=== PATIENT | male | born 1945 | race Asian ===

== ENCOUNTER 2018-01-13 08:21 | Inpatient (IN) | payer OTHER ==
[~2018-01-13 08:21] MED LIST: CEFAZOLIN 1 GM INJ
[2018-01-13] MEDS ORDERED: LIDOCAINE 1% (MDV) 20 ML INJ (10:30)
[2018-01-13] MEDS ORDERED: MIDAZOLAM 1 MG/ML 2 ML INJ (10:30)
[2018-01-13] MEDS ORDERED: ROCURONIUM 50 MG INJ (10:30)
[2018-01-13] MEDS ORDERED: PROPOFOL 20 ML (10:30)
[2018-01-13] MEDS ORDERED: POVIDONE IODINE 10% 28.4 GM OINT (11:41)
[2018-01-13] MEDS ORDERED: PHENYLephrine 10 MG INJ ×2 (12:11→12:28)
[2018-01-13] MEDS ORDERED: DEXAMETHASONE 4 MG/ML 1 ML INJ (12:43)
[2018-01-13] MEDS ORDERED: FAMOTIDINE 20 MG INJ (12:43)
[2018-01-13] MEDS ORDERED: ONDANSETRON 4 MG INJ (12:43)
[2018-01-13] MEDS ORDERED: ACETAMINOPHEN 1000MG/100ML IV 100 ML (12:43)
[2018-01-13] MEDS ORDERED: SUCCINYLCHOLINE CHLORIDE 100 MG/5 ML SYG IV (12:51)
[2018-01-13] MEDS ORDERED: ETOMIDATE 20 MG INJ (12:51)
[2018-01-13] MEDS: BUPIVACAINE 0.5% (SDV) 30 ML INJ (13:05)
[2018-01-13] MEDS: LIDOCAINE 1%/EPI 30 ML INJ (13:05)
[2018-01-13] MEDS: GELATIN SIZE 100 SPONGE (13:07)
[2018-01-13] MEDS: POLYMYXIN/BACITRACIN 1L IRRIG (13:09)
[2018-01-13] MEDS: THROMBIN 5000 UNIT VIAL ×2 (13:10)
[2018-01-13] MEDS: HEMOSTATIC MATRIX SYG ZFS (13:11)
[2018-01-13] MEDS ORDERED: THROMBIN 5000 UNIT VIAL (13:45)
[2018-01-13] MEDS: 1/2 NS + KCL 20 MEQ 1,000 ML IV ×2 (15:16→22:50)
[2018-01-13] MEDS ORDERED: CYCLOBENZAPRINE 10 MG TAB PO (15:30)
[2018-01-13] MEDS: LISINOPRIL 5 MG TAB PO (15:30)
[2018-01-13] MEDS: OXYBUTYNIN (XL) 5 MG TAB PO (15:30)
[2018-01-13] MEDS: HYDROCODONE/APAP (10/325) TAB PO ×3 (15:30→23:11)
[2018-01-13] MEDS ORDERED: ONDANSETRON 4 MG INJ IV ×2 (15:30→16:00)
[2018-01-13] MEDS: DOCUSATE SODIUM 100 MG CAP PO (15:30)
[2018-01-13] MEDS ORDERED: hydrALAzine 20 MG INJ IV (16:00)
[2018-01-13] MEDS ORDERED: DEXTROSE 50% 50 ML SYRINGE IV ×2 (16:00)
[2018-01-13] MEDS ORDERED: LABETALOL HCL 20MG INJ IV (16:00)
[2018-01-13] MEDS ORDERED: GLUCAGON 1 MG INJ IM (16:00)
[2018-01-13] MEDS ORDERED: GLUCOSE GEL 15 GRAM TUBE PO ×2 (16:00)
[2018-01-13] MEDS ORDERED: GLUCOSE GEL 15 GRAM TUBE BUCCAL (16:00)
[2018-01-13] MEDS ORDERED: DIPHENHYDRAMINE 50 MG INJ IV (16:00)
[2018-01-13] MEDS: CEFAZOLIN 1 GM/50 ML (PMX) 50 ML IVPB ×2 (16:55→22:52)
[2018-01-13] MEDS: HYDROmorphONE (0.2 MG/ML) 10ML SYG IV (19:01)
[2018-01-13] MEDS: INSULIN ASPART [NOVOLOG] 3 ML PEN SC ×2 (22:49→22:50)
[2018-01-13] MEDS: ATORVASTATIN 10 MG TAB PO ×2 (22:52→23:10)
[2018-01-13] MEDS: FAMOTIDINE 20 MG INJ IV (22:53)
[2018-01-13] MEDS: TAMSULOSIN (SR) 0.4 MG CAP PO ×2 (22:53→23:08)
[2018-01-14] MEDS: HYDROmorphONE 0.5 MG/0.5 ML SYG IV ×5 (00:38→20:56)
[2018-01-14] MEDS: HYDROCODONE/APAP (10/325) TAB PO ×4 (03:30→20:43)
[2018-01-14] MEDS: hydrALAzine 20 MG INJ IV (05:41)
[2018-01-14 07:38] LABS: ADD MAN DIFF? NO
[2018-01-14 07:50] LABS: WHITE BLOOD COUNT 14.5 10^3/ul (4.8-10.8)
[2018-01-14 07:50] LABS: ABNORMAL IP MESSAGE 1; BASOPHILS % 0.3 % (0.0-2.0); EOSINOPHILS % 0.3 % (0.0-7.0); HEMATOCRIT 36.3 % (42.0-52.0); HEMOGLOBIN 11.8 g/dl (14.0-18.0); LYMPHOCYTES # 2.2 10^3/ul (0.8-2.9); LYMPHOCYTES % 15.3 % (15.0-51.0); MEAN CORPUSCULAR HEMOGLOBIN 28.9 pg (29.0-33.0); MEAN CORPUSCULAR HGB CONC 32.5 g/dl (32.0-37.0); MEAN CORPUSCULAR VOLUME 88.8 fl (82.0-101.0); MEAN PLATELET VOLUME 11.2 fl (7.4-10.4); MONOCYTE # 1.5 10^3/ul (0.3-0.9); MONOCYTES % 10.5 % (0.0-11.0); NEUTROPHIL # 10.6 10^3/ul (1.6-7.5); NEUTROPHILS % 72.8 % (39.0-77.0); PLATELET COUNT 300 10^3/UL (140-415); POSITIVE DIFF @See below; RED BLOOD COUNT 4.09 10^6/ul (4.70-6.10); RED CELL DISTRIBUTION WIDTH 14.4 % (11.5-14.5)
[2018-01-14] MEDS: INSULIN ASPART [NOVOLOG] 3 ML PEN SC ×4 (07:55→20:42)
[2018-01-14] MEDS ORDERED: metFORMIN 850 MG TAB PO (08:00)
[2018-01-14 08:05] LABS: ANION GAP 12 (8-16); BLOOD UREA NITROGEN 13 mg/dl (7-20); CALCIUM 8.5 mg/dl (8.4-10.2); CARBON DIOXIDE 29 mmol/L (21-31); CHLORIDE 101 mmol/L (97-110); CREATININE 0.74 mg/dl (0.61-1.24); GLUCOSE 135 mg/dl (70-220); POTASSIUM 3.9 mmol/L (3.5-5.1); SODIUM 138 mmol/L (135-144)
[2018-01-14 08:11] LABS: MAGNESIUM 1.4 mg/dl (1.7-2.5)
[2018-01-14 08:11] LABS: PHOSPHORUS 2.6 mg/dl (2.5-4.9)
[2018-01-14] MEDS: 1/2 NS + KCL 20 MEQ 1,000 ML IV ×2 (08:45→20:46)
[2018-01-14] MEDS: FAMOTIDINE 20 MG INJ IV ×2 (08:45→20:40)
[2018-01-14] MEDS: DOCUSATE SODIUM 100 MG CAP PO (08:47)
[2018-01-14] MEDS: CEFAZOLIN 1 GM/50 ML (PMX) 50 ML IVPB (08:47)
[2018-01-14] MEDS: AMLODIPINE 10 MG TAB PO (08:48)
[2018-01-14] MEDS: OXYBUTYNIN (XL) 5 MG TAB PO (08:48)
[2018-01-14] MEDS: CHOLECALCIFEROL 1,000 UNIT TAB PO (08:48)
[2018-01-14] MEDS: LISINOPRIL 20 MG TAB PO (08:49)
[2018-01-14] MEDS: MAGNESIUM SULFATE 4 GM/100 ML 100 ML IVPB (11:33)
[2018-01-14] MEDS: CIPROFLOXACIN 200 MG/D5W IVPB 100 ML IVPB ×2 (14:18→20:39)
[2018-01-14] MEDS: ATORVASTATIN 10 MG TAB PO ×2 (20:41→20:42)
[2018-01-14] MEDS: TAMSULOSIN (SR) 0.4 MG CAP PO (20:42)
[2018-01-15] MEDS: HYDROmorphONE 0.5 MG/0.5 ML SYG IV ×3 (01:01→21:00)
[2018-01-15] MEDS: HYDROCODONE/APAP (10/325) TAB PO ×4 (03:30→20:57)
[2018-01-15] MEDS: 1/2 NS + KCL 20 MEQ 1,000 ML IV ×2 (05:50→17:22)
[2018-01-15 06:22] LABS: ADD MAN DIFF? NO
[2018-01-15 06:51] LABS: WHITE BLOOD COUNT 13.3 10^3/ul (4.8-10.8)
[2018-01-15 06:51] LABS: ABNORMAL IP MESSAGE 1; BASOPHIL # 0.1 10^3/ul (0.0-0.1); BASOPHILS % 0.4 % (0.0-2.0); EOSINOPHILS # 0.1 10^3/ul (0.0-0.5); EOSINOPHILS % 0.4 % (0.0-7.0); HEMATOCRIT 33.4 % (42.0-52.0); HEMOGLOBIN 11.1 g/dl (14.0-18.0); LYMPHOCYTES # 1.7 10^3/ul (0.8-2.9); LYMPHOCYTES % 12.6 % (15.0-51.0); MEAN CORPUSCULAR HEMOGLOBIN 29.6 pg (29.0-33.0); MEAN CORPUSCULAR HGB CONC 33.2 g/dl (32.0-37.0); MEAN CORPUSCULAR VOLUME 89.1 fl (82.0-101.0); MEAN PLATELET VOLUME 11.3 fl (7.4-10.4); MONOCYTES % 14.8 % (0.0-11.0); NEUTROPHIL # 9.5 10^3/ul (1.6-7.5); NEUTROPHILS % 71.4 % (39.0-77.0); PLATELET COUNT 270 10^3/UL (140-415); POSITIVE DIFF @See below; RED BLOOD COUNT 3.75 10^6/ul (4.70-6.10); RED CELL DISTRIBUTION WIDTH 14.7 % (11.5-14.5)
[2018-01-15 07:08] LABS: ANION GAP 12 (8-16); BLOOD UREA NITROGEN 10 mg/dl (7-20); CALCIUM 8.1 mg/dl (8.4-10.2); CARBON DIOXIDE 29 mmol/L (21-31); CHLORIDE 98 mmol/L (97-110); CREATININE 0.74 mg/dl (0.61-1.24); GLUCOSE 116 mg/dl (70-220); POTASSIUM 4.6 mmol/L (3.5-5.1); SODIUM 134 mmol/L (135-144)
[2018-01-15] MEDS: INSULIN ASPART [NOVOLOG] 3 ML PEN SC ×4 (07:55→20:56)
[2018-01-15] MEDS: DOCUSATE SODIUM 100 MG CAP PO (08:30)
[2018-01-15] MEDS: OXYBUTYNIN (XL) 5 MG TAB PO (08:30)
[2018-01-15] MEDS: LISINOPRIL 20 MG TAB PO (08:31)
[2018-01-15] MEDS: CHOLECALCIFEROL 1,000 UNIT TAB PO (08:31)
[2018-01-15] MEDS: AMLODIPINE 10 MG TAB PO (08:31)
[2018-01-15] MEDS: FAMOTIDINE 20 MG INJ IV ×2 (08:36→20:49)
[2018-01-15] MEDS: CIPROFLOXACIN 200 MG/D5W IVPB 100 ML IVPB ×2 (08:47→20:49)
[2018-01-15] MEDS: TAMSULOSIN (SR) 0.4 MG CAP PO (20:56)
[2018-01-15] MEDS: ATORVASTATIN 10 MG TAB PO (20:56)
[2018-01-16] MEDS: HYDROmorphONE 0.5 MG/0.5 ML SYG IV ×2 (01:07→20:23)
[2018-01-16] MEDS: 1/2 NS + KCL 20 MEQ 1,000 ML IV ×3 (03:29→23:30)
[2018-01-16] MEDS: HYDROCODONE/APAP (10/325) TAB PO ×4 (03:29→20:16)
[2018-01-16 06:24] LABS: ADD MAN DIFF? NO
[2018-01-16 06:25] LABS: BASOPHILS % 0.4 % (0.0-2.0); EOSINOPHILS # 0.1 10^3/ul (0.0-0.5); EOSINOPHILS % 1.1 % (0.0-7.0); HEMATOCRIT 35.6 % (42.0-52.0); HEMOGLOBIN 11.5 g/dl (14.0-18.0); LYMPHOCYTES # 1.6 10^3/ul (0.8-2.9); LYMPHOCYTES % 16.1 % (15.0-51.0); MEAN CORPUSCULAR HEMOGLOBIN 29.1 pg (29.0-33.0); MEAN CORPUSCULAR HGB CONC 32.3 g/dl (32.0-37.0); MEAN CORPUSCULAR VOLUME 90.1 fl (82.0-101.0); MONOCYTE # 1.3 10^3/ul (0.3-0.9); MONOCYTES % 12.8 % (0.0-11.0); NEUTROPHIL # 6.8 10^3/ul (1.6-7.5); NEUTROPHILS % 69.2 % (39.0-77.0); PLATELET COUNT 250 10^3/UL (140-415); RED BLOOD COUNT 3.95 10^6/ul (4.70-6.10); RED CELL DISTRIBUTION WIDTH 14.4 % (11.5-14.5)
[2018-01-16 06:25] LABS: WHITE BLOOD COUNT 9.9 10^3/ul (4.8-10.8)
[2018-01-16 07:26] LABS: MAGNESIUM 1.7 mg/dl (1.7-2.5)
[2018-01-16 07:26] LABS: PHOSPHORUS 2.3 mg/dl (2.5-4.9)
[2018-01-16 07:27] LABS: ANION GAP 15 (8-16); BLOOD UREA NITROGEN 13 mg/dl (7-20); CALCIUM 8.7 mg/dl (8.4-10.2); CARBON DIOXIDE 27 mmol/L (21-31); CHLORIDE 98 mmol/L (97-110); CREATININE 0.79 mg/dl (0.61-1.24); GLUCOSE 108 mg/dl (70-220); POTASSIUM 4.4 mmol/L (3.5-5.1); SODIUM 136 mmol/L (135-144)
[2018-01-16] MEDS: INSULIN ASPART [NOVOLOG] 3 ML PEN SC ×4 (07:55→20:15)
[2018-01-16] MEDS: FAMOTIDINE 20 MG INJ IV ×2 (08:41→20:13)
[2018-01-16] MEDS: CIPROFLOXACIN 200 MG/D5W IVPB 100 ML IVPB ×2 (08:42→20:23)
[2018-01-16] MEDS: OXYBUTYNIN (XL) 5 MG TAB PO (08:48)
[2018-01-16] MEDS: DOCUSATE SODIUM 100 MG CAP PO (08:48)
[2018-01-16] MEDS: AMLODIPINE 10 MG TAB PO (08:48)
[2018-01-16] MEDS: CHOLECALCIFEROL 1,000 UNIT TAB PO (08:49)
[2018-01-16] MEDS: LISINOPRIL 20 MG TAB PO (08:49)
[2018-01-16] MEDS: TAMSULOSIN (SR) 0.4 MG CAP PO (20:14)
[2018-01-16] MEDS: ATORVASTATIN 10 MG TAB PO (20:15)
[2018-01-17] MEDS: HYDROmorphONE 0.5 MG/0.5 ML SYG IV (00:10)
[2018-01-17] MEDS: HYDROCODONE/APAP (10/325) TAB PO ×5 (03:30→22:38)
[2018-01-17 06:59] LABS: PHOSPHORUS 2.5 mg/dl (2.5-4.9)
[2018-01-17 06:59] LABS: MAGNESIUM 1.5 mg/dl (1.7-2.5)
[2018-01-17 07:05] LABS: ANION GAP 12 (8-16); BLOOD UREA NITROGEN 14 mg/dl (7-20); CALCIUM 8.5 mg/dl (8.4-10.2); CARBON DIOXIDE 29 mmol/L (21-31); CHLORIDE 98 mmol/L (97-110); CREATININE 0.76 mg/dl (0.61-1.24); GLUCOSE 123 mg/dl (70-220); POTASSIUM 4.3 mmol/L (3.5-5.1); SODIUM 135 mmol/L (135-144)
[2018-01-17] MEDS: INSULIN ASPART [NOVOLOG] 3 ML PEN SC ×4 (07:55→21:00)
[2018-01-17] MEDS: CIPROFLOXACIN 200 MG/D5W IVPB 100 ML IVPB ×2 (08:45→21:37)
[2018-01-17] MEDS: FAMOTIDINE 20 MG INJ IV ×2 (08:47→21:34)
[2018-01-17] MEDS: CHOLECALCIFEROL 1,000 UNIT TAB PO (09:00)
[2018-01-17] MEDS: AMLODIPINE 10 MG TAB PO (09:00)
[2018-01-17] MEDS: LISINOPRIL 20 MG TAB PO (09:00)
[2018-01-17] MEDS: OXYBUTYNIN (XL) 5 MG TAB PO (09:00)
[2018-01-17] MEDS: DOCUSATE SODIUM 100 MG CAP PO (09:00)
[2018-01-17] MEDS: 1/2 NS + KCL 20 MEQ 1,000 ML IV (10:26)
[2018-01-17] MEDS: MAGNESIUM SULFATE 4 GM/100 ML 100 ML IVPB (10:47)
[2018-01-17] MEDS: TAMSULOSIN (SR) 0.4 MG CAP PO (21:33)
[2018-01-17] MEDS: ATORVASTATIN 10 MG TAB PO (21:33)
[2018-01-18] MEDS: hydrALAzine 20 MG INJ IV (00:21)
[2018-01-18] MEDS: HYDROmorphONE 0.5 MG/0.5 ML SYG IV (01:17)
[2018-01-18] MEDS: 1/2 NS + KCL 20 MEQ 1,000 ML IV ×2 (02:07→08:14)
[2018-01-18] MEDS: HYDROCODONE/APAP (10/325) TAB PO ×3 (05:30→15:05)
[2018-01-18 06:29] LABS: ADD MAN DIFF? NO
[2018-01-18 06:36] LABS: ABNORMAL IP MESSAGE 1; BASOPHILS % 0.2 % (0.0-2.0); EOSINOPHILS % 0.1 % (0.0-7.0); HEMATOCRIT 32.7 % (42.0-52.0); HEMOGLOBIN 10.6 g/dl (14.0-18.0); LYMPHOCYTES # 0.9 10^3/ul (0.8-2.9); LYMPHOCYTES % 5.2 % (15.0-51.0); MEAN CORPUSCULAR HGB CONC 32.4 g/dl (32.0-37.0); MEAN CORPUSCULAR VOLUME 89.3 fl (82.0-101.0); MEAN PLATELET VOLUME 10.7 fl (7.4-10.4); MONOCYTE # 1.8 10^3/ul (0.3-0.9); MONOCYTES % 10.7 % (0.0-11.0); NEUTROPHIL # 13.7 10^3/ul (1.6-7.5); NEUTROPHILS % 83.3 % (39.0-77.0); PLATELET COUNT 277 10^3/UL (140-415); POSITIVE DIFF @See below; RED BLOOD COUNT 3.66 10^6/ul (4.70-6.10); RED CELL DISTRIBUTION WIDTH 14.4 % (11.5-14.5)
[2018-01-18 06:36] LABS: WHITE BLOOD COUNT 16.4 10^3/ul (4.8-10.8)
[2018-01-18 07:06] LABS: ANION GAP 14 (8-16); BLOOD UREA NITROGEN 18 mg/dl (7-20); CALCIUM 8.1 mg/dl (8.4-10.2); CARBON DIOXIDE 30 mmol/L (21-31); CHLORIDE 94 mmol/L (97-110); CREATININE 0.69 mg/dl (0.61-1.24); GLUCOSE 188 mg/dl (70-220); POTASSIUM 4.5 mmol/L (3.5-5.1); SODIUM 133 mmol/L (135-144)
[2018-01-18] MEDS: LISINOPRIL 20 MG TAB PO (08:23)
[2018-01-18] MEDS: DOCUSATE SODIUM 100 MG CAP PO (08:23)
[2018-01-18] MEDS: AMLODIPINE 10 MG TAB PO (08:23)
[2018-01-18] MEDS: CHOLECALCIFEROL 1,000 UNIT TAB PO (08:23)
[2018-01-18] MEDS: FAMOTIDINE 20 MG INJ IV ×2 (08:23→21:56)
[2018-01-18] MEDS: INSULIN ASPART [NOVOLOG] 3 ML PEN SC ×4 (08:25→21:06)
[2018-01-18] MEDS: OXYBUTYNIN (XL) 5 MG TAB PO (08:30)
[2018-01-18] MEDS: CIPROFLOXACIN 200 MG/D5W IVPB 100 ML IVPB (08:37)
[2018-01-18] MEDS ORDERED: CYCLOBENZAPRINE 10 MG TAB PO (10:00)
[2018-01-18] MEDS: ACETAMINOPHEN 650MG/20.3ML CUP NGT (10:46)
[2018-01-18] MEDS ORDERED: [UNRECOGNIZED DRUG - REMARK] XX (11:00)
[2018-01-18] MEDS: [UNRECOGNIZED DRUG - REMARK] XX (11:00)
[2018-01-18] MEDS ORDERED: PENDING SANTYL ORDER FOR WOUND CARE XX (14:00)
[2018-01-18] MEDS: LEVOFLOXACIN 750MG/D5W (PMX) 150 ML IVPB (15:27)
[2018-01-18] MEDS: LACTOBACILLUS RHAMNOSUS CAP PO ×2 (15:28→21:59)
[2018-01-18] MEDS: NALOXONE (0.4 MG/ML) INJ IV (15:29)
[2018-01-18] MEDS: SOD CHLORIDE 0.9% 1,000 ML IV ×2 (17:57→18:53)
[2018-01-18 18:44] LABS: LACTIC ACID 1.6 mmol/L (0.5-2.0)
[2018-01-18] MEDS: SOD CHLORIDE 0.9% 500 ML IV (18:53)
[2018-01-18] MEDS: METOCLOPRAMIDE 10 MG INJ IV (18:57)
[2018-01-18] MEDS: PIPER-TAZO 3.375 GM IV (PMX) 100 ML IVPB (18:59)
[2018-01-18] MEDS ORDERED: VANCOMYCIN IV PER PHARMACY XX (19:30)
[2018-01-18] MEDS: LIDOCAINE 1% (MPF) 5 ML VIAL SC (19:30)
[2018-01-18] MEDS: ATORVASTATIN 10 MG TAB PO (21:00)
[2018-01-18] MEDS ORDERED: DOCUSATE SODIUM 10 MG/ML (10ML CUP) NGT (21:00)
[2018-01-18 21:05] LABS: ADD UMIC YES; UR ASCORBIC ACID NEGATIVE (NEGATIVE); UR BILIRUBIN (Dip) 1+ mg/dL (NEGATIVE); UR BLOOD (Dip) NEGATIVE (NEGATIVE); UR CLARITY CLOUDY (CLEAR); UR COLOR AMBER (YELLOW); UR GLUCOSE (Dip) NEGATIVE (NEGATIVE); UR KETONES (Dip) NEGATIVE (NEGATIVE); UR LEUKOCYTE ESTERASE (Dip) 1+ Leu/ul (NEGATIVE); UR MUCUS MODERATE /HPF (NONE SEEN); UR NITRITE (Dip) NEGATIVE (NEGATIVE); UR RBC 29 /HPF (0-5); UR SPECIFIC GRAVITY (Dip) 1.028 (1.003-1.030); UR TOTAL PROTEIN (Dip) 1+ mg/dl (NEGATIVE); UR UROBILINOGEN (Dip) 2+ mg/dL (NEGATIVE); UR WBC 21 /HPF (0-5)
[2018-01-18] MEDS: LEVALBUTEROL (NEB) 0.63 MG/3 ML AMP HHN (21:18)
[2018-01-18] MEDS: SCOPOLAMINE 1.5 MG PATCH TRANSDERM (21:57)
[2018-01-18] MEDS: VANCOMYCIN 500MG/NS (PMX) 100 ML IVPB (21:57)
[2018-01-18] MEDS: VANCOMYCIN 1.25 GM in SOD CHLORIDE 0.9% 250 ML IVPB (22:08)
[2018-01-18] MEDS: DEXTROSE 5%-0.9% NACL 1,000 ML IV (23:41)
[2018-01-19] MEDS: INSULIN ASPART [NOVOLOG] 3 ML PEN SC ×6 (01:00→21:00)
[2018-01-19] MEDS: METOCLOPRAMIDE 10 MG INJ IV ×4 (01:15→17:34)
[2018-01-19] MEDS: LEVALBUTEROL (NEB) 0.63 MG/3 ML AMP HHN ×6 (01:39→20:12)
[2018-01-19] MEDS: PIPER-TAZO 3.375 GM IV (PMX) 100 ML IVPB (05:50)
[2018-01-19 07:31] LABS: ADD MAN DIFF? NO
[2018-01-19 07:36] LABS: WHITE BLOOD COUNT 17.5 10^3/ul (4.8-10.8)
[2018-01-19 07:36] LABS: BASOPHIL # 0.1 10^3/ul (0.0-0.1); BASOPHILS % 0.3 % (0.0-2.0); EOSINOPHILS % 0.1 % (0.0-7.0); HEMATOCRIT 28.3 % (42.0-52.0); HEMOGLOBIN 9.4 g/dl (14.0-18.0); LYMPHOCYTES # 1.1 10^3/ul (0.8-2.9); LYMPHOCYTES % 6.5 % (15.0-51.0); MEAN CORPUSCULAR HEMOGLOBIN 29.4 pg (29.0-33.0); MEAN CORPUSCULAR HGB CONC 33.2 g/dl (32.0-37.0); MEAN CORPUSCULAR VOLUME 88.4 fl (82.0-101.0); MEAN PLATELET VOLUME 11.1 fl (7.4-10.4); MONOCYTE # 1.2 10^3/ul (0.3-0.9); MONOCYTES % 6.7 % (0.0-11.0); NEUTROPHILS % 85.6 % (39.0-77.0); PLATELET COUNT 249 10^3/UL (140-415); RED CELL DISTRIBUTION WIDTH 14.6 % (11.5-14.5)
[2018-01-19 07:54] LABS: ALANINE AMINOTRANSFERASE 52 IU/L (13-69); ALBUMIN 2.7 g/dl (3.3-4.9); ALBUMIN/GLOBULIN RATIO 0.87; ALKALINE PHOSPHATASE 90 IU/L (42-121); ANION GAP 14 (8-16); ASPARTATE AMINO TRANSFERASE 86 IU/L (15-46); BILIRUBIN,INDIRECT 0.4 mg/dl (0-1.1); BILIRUBIN,TOTAL 0.4 mg/dl (0.2-1.3); BLOOD UREA NITROGEN 17 mg/dl (7-20); CALCIUM 8.1 mg/dl (8.4-10.2); CARBON DIOXIDE 30 mmol/L (21-31); CHLORIDE 98 mmol/L (97-110); CREATININE 0.73 mg/dl (0.61-1.24); GLUCOSE 174 mg/dl (70-220); POTASSIUM 4.1 mmol/L (3.5-5.1); SODIUM 138 mmol/L (135-144); TOTAL PROTEIN 5.8 g/dl (6.1-8.1)
[2018-01-19 07:56] LABS: LACTIC ACID 1.1 mmol/L (0.5-2.0)
[2018-01-19 08:26] LABS: MAGNESIUM 1.9 mg/dl (1.7-2.5)
[2018-01-19] MEDS: CHOLECALCIFEROL 1,000 UNIT TAB PO (09:19)
[2018-01-19] MEDS: LACTOBACILLUS RHAMNOSUS CAP PO ×2 (09:20→21:27)
[2018-01-19] MEDS: FAMOTIDINE 20 MG INJ IV ×2 (09:20→21:26)
[2018-01-19] MEDS: VANCOMYCIN 500MG/NS (PMX) 100 ML IVPB ×2 (09:27→21:26)
[2018-01-19] MEDS: ACETYLCYSTEINE 20% 4 ML VIAL NEB ×2 (10:25→20:12)
[2018-01-19] MEDS: LEVOFLOXACIN 750MG/D5W (PMX) 150 ML IVPB (14:44)
[2018-01-19] MEDS: DEXTROSE 5%-0.9% NACL 1,000 ML IV (18:13)
[2018-01-19] MEDS: ATORVASTATIN 10 MG TAB PO (21:26)
[2018-01-20] MEDS: INSULIN ASPART [NOVOLOG] 3 ML PEN SC ×6 (00:39→20:30)
[2018-01-20] MEDS: METOCLOPRAMIDE 10 MG INJ IV ×4 (00:40→17:49)
[2018-01-20] MEDS: LEVALBUTEROL (NEB) 0.63 MG/3 ML AMP HHN ×6 (01:22→21:00)
[2018-01-20] MEDS: DEXTROSE 5%-0.9% NACL 1,000 ML IV ×2 (05:08→15:30)
[2018-01-20] MEDS: ACETYLCYSTEINE 20% 4 ML VIAL NEB ×3 (05:35→17:30)
[2018-01-20 08:00] LABS: ADD MAN DIFF? NO
[2018-01-20] MEDS: CHOLECALCIFEROL 1,000 UNIT TAB PO (08:05)
[2018-01-20] MEDS: LACTOBACILLUS RHAMNOSUS CAP PO ×2 (08:06→20:29)
[2018-01-20] MEDS: FAMOTIDINE 20 MG INJ IV ×2 (08:06→20:30)
[2018-01-20 08:07] LABS: BASOPHILS % 0.2 % (0.0-2.0); EOSINOPHILS # 0.1 10^3/ul (0.0-0.5); EOSINOPHILS % 0.5 % (0.0-7.0); HEMATOCRIT 28.9 % (42.0-52.0); HEMOGLOBIN 9.4 g/dl (14.0-18.0); LYMPHOCYTES # 1.1 10^3/ul (0.8-2.9); LYMPHOCYTES % 9.1 % (15.0-51.0); MEAN CORPUSCULAR HEMOGLOBIN 29.2 pg (29.0-33.0); MEAN CORPUSCULAR HGB CONC 32.5 g/dl (32.0-37.0); MEAN CORPUSCULAR VOLUME 89.8 fl (82.0-101.0); MONOCYTE # 1.2 10^3/ul (0.3-0.9); NEUTROPHIL # 9.6 10^3/ul (1.6-7.5); NEUTROPHILS % 79.4 % (39.0-77.0); PLATELET COUNT 265 10^3/UL (140-415); RED BLOOD COUNT 3.22 10^6/ul (4.70-6.10); RED CELL DISTRIBUTION WIDTH 14.8 % (11.5-14.5)
[2018-01-20 08:33] LABS: ANION GAP 10 (8-16); BLOOD UREA NITROGEN 11 mg/dl (7-20); CALCIUM 8.6 mg/dl (8.4-10.2); CARBON DIOXIDE 31 mmol/L (21-31); CHLORIDE 101 mmol/L (97-110); CREATININE 0.64 mg/dl (0.61-1.24); GLUCOSE 221 mg/dl (70-220); POTASSIUM 3.3 mmol/L (3.5-5.1); SODIUM 139 mmol/L (135-144)
[2018-01-20 08:33] LABS: VANCOMYCIN,TROUGH 6.5 ug/ml (10.0-20.0)
[2018-01-20 08:35] LABS: MAGNESIUM 1.7 mg/dl (1.7-2.5)
[2018-01-20] MEDS: VANCOMYCIN 1 GM 250 ML IVPB ×2 (09:51→20:31)
[2018-01-20] MEDS: BISACODYL 10 MG SUPP PR (09:51)
[2018-01-20] MEDS: POTASSIUM CHLORIDE 20 MEQ POWDER FOR ORAL SOLN NGT (11:49)
[2018-01-20] MEDS: LEVOFLOXACIN 750MG/D5W (PMX) 150 ML IVPB (14:23)
[2018-01-20] MEDS: POTASSIUM PHOSPHATE 30 MM in SOD CHLORIDE 0.9% 250 ML IVPB (14:24)
[2018-01-20] MEDS: ATORVASTATIN 10 MG TAB PO (20:29)
[2018-01-21] MEDS: METOCLOPRAMIDE 10 MG INJ IV ×4 (00:21→17:15)
[2018-01-21] MEDS: INSULIN ASPART [NOVOLOG] 3 ML PEN SC ×6 (00:22→20:37)
[2018-01-21] MEDS: LEVALBUTEROL (NEB) 0.63 MG/3 ML AMP HHN ×6 (00:54→20:24)
[2018-01-21] MEDS: DEXTROSE 5%-0.9% NACL 1,000 ML IV (06:00)
[2018-01-21 06:11] LABS: ADD MAN DIFF? NO
[2018-01-21 06:18] LABS: WHITE BLOOD COUNT 10.1 10^3/ul (4.8-10.8)
[2018-01-21 06:18] LABS: BASOPHILS % 0.4 % (0.0-2.0); EOSINOPHILS # 0.2 10^3/ul (0.0-0.5); EOSINOPHILS % 1.9 % (0.0-7.0); HEMATOCRIT 28.8 % (42.0-52.0); HEMOGLOBIN 9.6 g/dl (14.0-18.0); LYMPHOCYTES # 1.3 10^3/ul (0.8-2.9); LYMPHOCYTES % 12.9 % (15.0-51.0); MEAN CORPUSCULAR HEMOGLOBIN 29.2 pg (29.0-33.0); MEAN CORPUSCULAR HGB CONC 33.3 g/dl (32.0-37.0); MEAN CORPUSCULAR VOLUME 87.5 fl (82.0-101.0); MEAN PLATELET VOLUME 10.6 fl (7.4-10.4); MONOCYTE # 1.2 10^3/ul (0.3-0.9); MONOCYTES % 11.5 % (0.0-11.0); NEUTROPHIL # 7.3 10^3/ul (1.6-7.5); NEUTROPHILS % 72.7 % (39.0-77.0); PLATELET COUNT 308 10^3/UL (140-415); RED BLOOD COUNT 3.29 10^6/ul (4.70-6.10); RED CELL DISTRIBUTION WIDTH 14.8 % (11.5-14.5)
[2018-01-21 06:47] LABS: MAGNESIUM 1.5 mg/dl (1.7-2.5)
[2018-01-21 06:47] LABS: PHOSPHORUS 3.2 mg/dl (2.5-4.9)
[2018-01-21 07:12] LABS: ANION GAP 10 (8-16); BLOOD UREA NITROGEN 11 mg/dl (7-20); CALCIUM 8.8 mg/dl (8.4-10.2); CARBON DIOXIDE 33 mmol/L (21-31); CHLORIDE 99 mmol/L (97-110); CREATININE 0.59 mg/dl (0.61-1.24); GLUCOSE 204 mg/dl (70-220); POTASSIUM 3.7 mmol/L (3.5-5.1); SODIUM 138 mmol/L (135-144)
[2018-01-21] MEDS: LACTOBACILLUS RHAMNOSUS CAP PO ×2 (08:21→20:45)
[2018-01-21] MEDS: VANCOMYCIN 1 GM 250 ML IVPB ×2 (08:21→21:29)
[2018-01-21] MEDS: FAMOTIDINE 20 MG INJ IV (08:21)
[2018-01-21] MEDS: CHOLECALCIFEROL 1,000 UNIT TAB PO (08:21)
[2018-01-21] MEDS: POTASSIUM CHLORIDE 20 MEQ POWDER FOR ORAL SOLN NGT (11:17)
[2018-01-21] MEDS: MAGNESIUM SULFATE 4 GM/100 ML 100 ML IVPB (11:50)
[2018-01-21] MEDS: LEVOFLOXACIN 750MG/D5W (PMX) 150 ML IVPB (13:58)
[2018-01-21 18:17] LABS: PROCALCITONIN 0.27 ng/mL (<0.10)
[2018-01-21] MEDS: ATORVASTATIN 10 MG TAB PO (20:45)
[2018-01-21] MEDS: FAMOTIDINE 20 MG TAB NGT (20:45)
[2018-01-21] MEDS: SCOPOLAMINE 1.5 MG PATCH TRANSDERM (20:45)
[2018-01-21 20:55] LABS: VANCOMYCIN,TROUGH 10.6 ug/ml (10.0-20.0)
[2018-01-22] MEDS: METOCLOPRAMIDE 10 MG INJ IV ×4 (00:29→17:37)
[2018-01-22] MEDS: INSULIN ASPART [NOVOLOG] 3 ML PEN SC ×6 (00:31→20:41)
[2018-01-22] MEDS: LEVALBUTEROL (NEB) 0.63 MG/3 ML AMP HHN ×5 (00:44→17:15)
[2018-01-22] MEDS: LEVOFLOXACIN 750 MG TABLET NGT (05:29)
[2018-01-22 08:15] LABS: ADD MAN DIFF? NO
[2018-01-22 08:24] LABS: WHITE BLOOD COUNT 8.9 10^3/ul (4.8-10.8)
[2018-01-22 08:24] LABS: BASOPHILS % 0.3 % (0.0-2.0); EOSINOPHILS # 0.3 10^3/ul (0.0-0.5); EOSINOPHILS % 3.7 % (0.0-7.0); HEMATOCRIT 30.8 % (42.0-52.0); HEMOGLOBIN 10.1 g/dl (14.0-18.0); LYMPHOCYTES # 1.4 10^3/ul (0.8-2.9); LYMPHOCYTES % 15.6 % (15.0-51.0); MEAN CORPUSCULAR HGB CONC 32.8 g/dl (32.0-37.0); MEAN CORPUSCULAR VOLUME 88.5 fl (82.0-101.0); MEAN PLATELET VOLUME 10.7 fl (7.4-10.4); MONOCYTE # 1.3 10^3/ul (0.3-0.9); MONOCYTES % 14.6 % (0.0-11.0); NEUTROPHIL # 5.7 10^3/ul (1.6-7.5); NEUTROPHILS % 64.9 % (39.0-77.0); PLATELET COUNT 342 10^3/UL (140-415); RED BLOOD COUNT 3.48 10^6/ul (4.70-6.10); RED CELL DISTRIBUTION WIDTH 14.6 % (11.5-14.5)
[2018-01-22] MEDS: VANCOMYCIN 1 GM 250 ML IVPB (08:28)
[2018-01-22] MEDS: CHOLECALCIFEROL 1,000 UNIT TAB PO (08:29)
[2018-01-22] MEDS: LACTOBACILLUS RHAMNOSUS CAP PO ×2 (08:29→21:53)
[2018-01-22] MEDS: FAMOTIDINE 20 MG TAB NGT ×2 (08:29→21:53)
[2018-01-22 08:41] LABS: ANION GAP 11 (8-16); BLOOD UREA NITROGEN 16 mg/dl (7-20); CALCIUM 8.9 mg/dl (8.4-10.2); CARBON DIOXIDE 32 mmol/L (21-31); CHLORIDE 97 mmol/L (97-110); CREATININE 0.62 mg/dl (0.61-1.24); GLUCOSE 184 mg/dl (70-220); POTASSIUM 4.2 mmol/L (3.5-5.1); SODIUM 136 mmol/L (135-144)
[2018-01-22 08:50] LABS: PHOSPHORUS 3.1 mg/dl (2.5-4.9)
[2018-01-22 08:50] LABS: MAGNESIUM 2.2 mg/dl (1.7-2.5)
[2018-01-22] MEDS: ATORVASTATIN 10 MG TAB PO (21:53)
[2018-01-23] MEDS: METOCLOPRAMIDE 10 MG INJ IV ×4 (00:27→17:42)
[2018-01-23] MEDS: INSULIN ASPART [NOVOLOG] 3 ML PEN SC ×6 (00:31→22:01)
[2018-01-23] MEDS: LEVOFLOXACIN 750 MG TABLET NGT (06:02)
[2018-01-23 06:24] LABS: ADD MAN DIFF? NO
[2018-01-23 06:33] LABS: WHITE BLOOD COUNT 10.4 10^3/ul (4.8-10.8)
[2018-01-23 06:33] LABS: BASOPHIL # 0.1 10^3/ul (0.0-0.1); BASOPHILS % 0.5 % (0.0-2.0); EOSINOPHILS # 0.3 10^3/ul (0.0-0.5); EOSINOPHILS % 2.9 % (0.0-7.0); HEMATOCRIT 30.3 % (42.0-52.0); LYMPHOCYTES # 1.7 10^3/ul (0.8-2.9); LYMPHOCYTES % 16.6 % (15.0-51.0); MEAN CORPUSCULAR HEMOGLOBIN 29.1 pg (29.0-33.0); MEAN CORPUSCULAR VOLUME 88.1 fl (82.0-101.0); MEAN PLATELET VOLUME 10.6 fl (7.4-10.4); MONOCYTE # 1.4 10^3/ul (0.3-0.9); MONOCYTES % 13.6 % (0.0-11.0); NEUTROPHIL # 6.8 10^3/ul (1.6-7.5); NEUTROPHILS % 65.2 % (39.0-77.0); PLATELET COUNT 391 10^3/UL (140-415); RED BLOOD COUNT 3.44 10^6/ul (4.70-6.10); RED CELL DISTRIBUTION WIDTH 14.5 % (11.5-14.5)
[2018-01-23 07:19] LABS: ANION GAP 15 (8-16); BLOOD UREA NITROGEN 19 mg/dl (7-20); CALCIUM 8.9 mg/dl (8.4-10.2); CARBON DIOXIDE 33 mmol/L (21-31); CHLORIDE 97 mmol/L (97-110); CREATININE 0.73 mg/dl (0.61-1.24); GLUCOSE 180 mg/dl (70-220); POTASSIUM 3.9 mmol/L (3.5-5.1); SODIUM 141 mmol/L (135-144)
[2018-01-23 08:33] LABS: MAGNESIUM 1.9 mg/dl (1.7-2.5)
[2018-01-23 08:33] LABS: PHOSPHORUS 3.6 mg/dl (2.5-4.9)
[2018-01-23] MEDS: CHOLECALCIFEROL 1,000 UNIT TAB PO (08:37)
[2018-01-23] MEDS: FAMOTIDINE 20 MG TAB NGT ×2 (08:37→21:53)
[2018-01-23] MEDS: LACTOBACILLUS RHAMNOSUS CAP PO (08:37)
[2018-01-23] MEDS: BISACODYL 10 MG SUPP PR (18:53)
[2018-01-23] MEDS: ATORVASTATIN 10 MG TAB PO (21:53)
[2018-01-24] MEDS: METOCLOPRAMIDE 10 MG INJ IV ×5 (00:46→23:07)
[2018-01-24] MEDS: LACTOBACILLUS RHAMNOSUS CAP PO ×3 (00:46→21:29)
[2018-01-24] MEDS: INSULIN ASPART [NOVOLOG] 3 ML PEN SC ×6 (01:00→21:00)
[2018-01-24] MEDS: LEVOFLOXACIN 750 MG TABLET NGT (06:29)
[2018-01-24 07:29] LABS: ALANINE AMINOTRANSFERASE 106 IU/L (13-69); ALBUMIN 3.3 g/dl (3.3-4.9); ALBUMIN/GLOBULIN RATIO 0.86; ALKALINE PHOSPHATASE 133 IU/L (42-121); ANION GAP 14 (8-16); ASPARTATE AMINO TRANSFERASE 49 IU/L (15-46); BLOOD UREA NITROGEN 22 mg/dl (7-20); CALCIUM 9.1 mg/dl (8.4-10.2); CARBON DIOXIDE 35 mmol/L (21-31); CHLORIDE 96 mmol/L (97-110); CREATININE 0.71 mg/dl (0.61-1.24); GLUCOSE 196 mg/dl (70-220); MAGNESIUM 1.8 mg/dl (1.7-2.5); POTASSIUM 3.6 mmol/L (3.5-5.1); SODIUM 141 mmol/L (135-144); TOTAL PROTEIN 7.1 g/dl (6.1-8.1)
[2018-01-24] MEDS: CHOLECALCIFEROL 1,000 UNIT TAB PO (08:42)
[2018-01-24] MEDS: FAMOTIDINE 20 MG TAB NGT ×2 (08:42→21:29)
[2018-01-24] MEDS: ATORVASTATIN 10 MG TAB PO (21:29)
[2018-01-25] MEDS: INSULIN ASPART [NOVOLOG] 3 ML PEN SC ×6 (01:49→21:09)
[2018-01-25] MEDS: LEVOFLOXACIN 750 MG TABLET NGT (05:31)
[2018-01-25] MEDS: METOCLOPRAMIDE 10 MG INJ IV ×3 (05:31→17:51)
[2018-01-25 06:04] LABS: ADD MAN DIFF? NO
[2018-01-25 06:05] LABS: WHITE BLOOD COUNT 13.3 10^3/ul (4.8-10.8)
[2018-01-25 06:05] LABS: ABNORMAL IP MESSAGE 1; BASOPHIL # 0.1 10^3/ul (0.0-0.1); BASOPHILS % 0.5 % (0.0-2.0); EOSINOPHILS # 0.4 10^3/ul (0.0-0.5); EOSINOPHILS % 3.3 % (0.0-7.0); HEMATOCRIT 30.9 % (42.0-52.0); HEMOGLOBIN 10.2 g/dl (14.0-18.0); LYMPHOCYTES # 2.1 10^3/ul (0.8-2.9); LYMPHOCYTES % 16.1 % (15.0-51.0); MEAN CORPUSCULAR HEMOGLOBIN 29.1 pg (29.0-33.0); MEAN PLATELET VOLUME 10.5 fl (7.4-10.4); MONOCYTE # 1.6 10^3/ul (0.3-0.9); MONOCYTES % 12.4 % (0.0-11.0); NEUTROPHIL # 8.8 10^3/ul (1.6-7.5); NEUTROPHILS % 66.5 % (39.0-77.0); PLATELET COUNT 466 10^3/UL (140-415); POSITIVE DIFF @See below; RED BLOOD COUNT 3.51 10^6/ul (4.70-6.10); RED CELL DISTRIBUTION WIDTH 14.5 % (11.5-14.5)
[2018-01-25 07:47] LABS: ALANINE AMINOTRANSFERASE 93 IU/L (13-69); ALBUMIN 3.4 g/dl (3.3-4.9); ALBUMIN/GLOBULIN RATIO 0.87; ALKALINE PHOSPHATASE 131 IU/L (42-121); ANION GAP 16 (8-16); ASPARTATE AMINO TRANSFERASE 51 IU/L (15-46); BLOOD UREA NITROGEN 21 mg/dl (7-20); CALCIUM 9.1 mg/dl (8.4-10.2); CARBON DIOXIDE 33 mmol/L (21-31); CHLORIDE 95 mmol/L (97-110); CREATININE 0.65 mg/dl (0.61-1.24); GLUCOSE 188 mg/dl (70-220); POTASSIUM 3.9 mmol/L (3.5-5.1); SODIUM 140 mmol/L (135-144); TOTAL PROTEIN 7.3 g/dl (6.1-8.1)
[2018-01-25] MEDS: CHOLECALCIFEROL 1,000 UNIT TAB PO (09:02)
[2018-01-25] MEDS: LACTOBACILLUS RHAMNOSUS CAP PO ×2 (09:02→21:07)
[2018-01-25] MEDS: FAMOTIDINE 20 MG TAB NGT ×2 (09:02→21:06)
[2018-01-25] MEDS: ATORVASTATIN 10 MG TAB PO (21:06)
[2018-01-26] MEDS: INSULIN ASPART [NOVOLOG] 3 ML PEN SC ×6 (01:00→22:22)
[2018-01-26] MEDS: METOCLOPRAMIDE 10 MG INJ IV ×4 (01:01→17:45)
[2018-01-26] MEDS: LEVOFLOXACIN 750 MG TABLET NGT (06:24)
[2018-01-26] MEDS: CHOLECALCIFEROL 1,000 UNIT TAB PO (09:12)
[2018-01-26] MEDS: LACTOBACILLUS RHAMNOSUS CAP PO ×2 (09:12→22:03)
[2018-01-26] MEDS: FAMOTIDINE 20 MG TAB NGT ×2 (09:12→22:03)
[2018-01-26 12:14] LABS: ADD MAN DIFF? NO
[2018-01-26 12:17] LABS: WHITE BLOOD COUNT 11.6 10^3/ul (4.8-10.8)
[2018-01-26 12:17] LABS: BASOPHIL # 0.1 10^3/ul (0.0-0.1); BASOPHILS % 0.6 % (0.0-2.0); EOSINOPHILS # 0.3 10^3/ul (0.0-0.5); EOSINOPHILS % 2.1 % (0.0-7.0); HEMATOCRIT 32.6 % (42.0-52.0); HEMOGLOBIN 10.6 g/dl (14.0-18.0); LYMPHOCYTES # 2.3 10^3/ul (0.8-2.9); LYMPHOCYTES % 19.4 % (15.0-51.0); MEAN CORPUSCULAR HEMOGLOBIN 28.7 pg (29.0-33.0); MEAN CORPUSCULAR HGB CONC 32.5 g/dl (32.0-37.0); MEAN CORPUSCULAR VOLUME 88.3 fl (82.0-101.0); MEAN PLATELET VOLUME 10.4 fl (7.4-10.4); MONOCYTE # 1.4 10^3/ul (0.3-0.9); NEUTROPHIL # 7.5 10^3/ul (1.6-7.5); NEUTROPHILS % 64.7 % (39.0-77.0); PLATELET COUNT 524 10^3/UL (140-415); RED BLOOD COUNT 3.69 10^6/ul (4.70-6.10); RED CELL DISTRIBUTION WIDTH 14.5 % (11.5-14.5)
[2018-01-26 12:40] LABS: ANION GAP 13 (8-16); BLOOD UREA NITROGEN 21 mg/dl (7-20); CALCIUM 9.4 mg/dl (8.4-10.2); CARBON DIOXIDE 33 mmol/L (21-31); CHLORIDE 95 mmol/L (97-110); CREATININE 0.69 mg/dl (0.61-1.24); GLUCOSE 169 mg/dl (70-220); MAGNESIUM 1.9 mg/dl (1.7-2.5); POTASSIUM 4.3 mmol/L (3.5-5.1); SODIUM 137 mmol/L (135-144)
[2018-01-26] MEDS: ATORVASTATIN 10 MG TAB PO (22:03)
[2018-01-27] MEDS: METOCLOPRAMIDE 10 MG INJ IV ×4 (00:46→18:28)
[2018-01-27] MEDS: INSULIN ASPART [NOVOLOG] 3 ML PEN SC ×6 (00:46→21:08)
[2018-01-27] MEDS: LEVOFLOXACIN 750 MG TABLET NGT (05:37)
[2018-01-27 08:48] LABS: ADD MAN DIFF? NO
[2018-01-27 08:49] LABS: BASOPHIL # 0.1 10^3/ul (0.0-0.1); BASOPHILS % 0.4 % (0.0-2.0); EOSINOPHILS # 0.3 10^3/ul (0.0-0.5); EOSINOPHILS % 2.2 % (0.0-7.0); HEMATOCRIT 33.9 % (42.0-52.0); HEMOGLOBIN 10.9 g/dl (14.0-18.0); LYMPHOCYTES # 1.9 10^3/ul (0.8-2.9); LYMPHOCYTES % 16.8 % (15.0-51.0); MEAN CORPUSCULAR HEMOGLOBIN 28.8 pg (29.0-33.0); MEAN CORPUSCULAR HGB CONC 32.2 g/dl (32.0-37.0); MEAN CORPUSCULAR VOLUME 89.4 fl (82.0-101.0); MEAN PLATELET VOLUME 10.5 fl (7.4-10.4); MONOCYTE # 1.4 10^3/ul (0.3-0.9); MONOCYTES % 12.2 % (0.0-11.0); NEUTROPHIL # 7.6 10^3/ul (1.6-7.5); NEUTROPHILS % 67.1 % (39.0-77.0); PLATELET COUNT 555 10^3/UL (140-415); RED BLOOD COUNT 3.79 10^6/ul (4.70-6.10); RED CELL DISTRIBUTION WIDTH 14.4 % (11.5-14.5)
[2018-01-27 08:49] LABS: WHITE BLOOD COUNT 11.3 10^3/ul (4.8-10.8)
[2018-01-27 09:19] LABS: PHOSPHORUS 3.7 mg/dl (2.5-4.9)
[2018-01-27 09:19] LABS: MAGNESIUM 1.9 mg/dl (1.7-2.5)
[2018-01-27 09:25] LABS: ANION GAP 13 (8-16); BLOOD UREA NITROGEN 21 mg/dl (7-20); CALCIUM 9.4 mg/dl (8.4-10.2); CARBON DIOXIDE 33 mmol/L (21-31); CHLORIDE 94 mmol/L (97-110); CREATININE 0.71 mg/dl (0.61-1.24); GLUCOSE 179 mg/dl (70-220); POTASSIUM 4.1 mmol/L (3.5-5.1); SODIUM 136 mmol/L (135-144)
[2018-01-27] MEDS: FAMOTIDINE 20 MG TAB NGT ×2 (11:06→21:06)
[2018-01-27] MEDS: LACTOBACILLUS RHAMNOSUS CAP PO ×2 (11:06→21:06)
[2018-01-27] MEDS: CHOLECALCIFEROL 1,000 UNIT TAB PO (11:06)
[2018-01-27] MEDS: hydrALAzine 20 MG INJ IV (21:01)
[2018-01-27] MEDS: ATORVASTATIN 10 MG TAB PO (21:06)
[2018-01-28] MEDS: METOCLOPRAMIDE 10 MG INJ IV ×4 (00:28→17:33)
[2018-01-28] MEDS: INSULIN ASPART [NOVOLOG] 3 ML PEN SC ×6 (00:44→21:42)
[2018-01-28] MEDS: LEVOFLOXACIN 750 MG TABLET NGT (05:20)
[2018-01-28] MEDS: FAMOTIDINE 20 MG TAB NGT ×2 (08:41→21:27)
[2018-01-28] MEDS: CHOLECALCIFEROL 1,000 UNIT TAB PO (08:41)
[2018-01-28] MEDS: LACTOBACILLUS RHAMNOSUS CAP PO ×2 (08:41→21:27)
[2018-01-28 11:28] LABS: ADD MAN DIFF? NO
[2018-01-28 11:33] LABS: WHITE BLOOD COUNT 10.7 10^3/ul (4.8-10.8)
[2018-01-28 11:33] LABS: BASOPHILS % 0.3 % (0.0-2.0); EOSINOPHILS # 0.2 10^3/ul (0.0-0.5); EOSINOPHILS % 1.5 % (0.0-7.0); HEMATOCRIT 33.3 % (42.0-52.0); HEMOGLOBIN 10.9 g/dl (14.0-18.0); LYMPHOCYTES # 1.6 10^3/ul (0.8-2.9); LYMPHOCYTES % 14.8 % (15.0-51.0); MEAN CORPUSCULAR HGB CONC 32.7 g/dl (32.0-37.0); MEAN CORPUSCULAR VOLUME 88.6 fl (82.0-101.0); MONOCYTE # 1.1 10^3/ul (0.3-0.9); MONOCYTES % 10.5 % (0.0-11.0); NEUTROPHIL # 7.7 10^3/ul (1.6-7.5); PLATELET COUNT 579 10^3/UL (140-415); RED BLOOD COUNT 3.76 10^6/ul (4.70-6.10); RED CELL DISTRIBUTION WIDTH 14.4 % (11.5-14.5)
[2018-01-28 11:54] LABS: ANION GAP 13 (8-16); BLOOD UREA NITROGEN 23 mg/dl (7-20); CALCIUM 9.3 mg/dl (8.4-10.2); CARBON DIOXIDE 33 mmol/L (21-31); CHLORIDE 93 mmol/L (97-110); CREATININE 0.78 mg/dl (0.61-1.24); GLUCOSE 197 mg/dl (70-220); POTASSIUM 4.2 mmol/L (3.5-5.1); SODIUM 135 mmol/L (135-144)
[2018-01-28] MEDS: BISACODYL 10 MG SUPP PR (18:16)
[2018-01-28] MEDS: ATORVASTATIN 10 MG TAB PO (21:27)
[2018-01-29] MEDS: METOCLOPRAMIDE 10 MG INJ IV ×4 (00:31→17:22)
[2018-01-29] MEDS: INSULIN ASPART [NOVOLOG] 3 ML PEN SC ×6 (01:01→20:55)
[2018-01-29] MEDS: LEVOFLOXACIN 750 MG TABLET NGT (05:34)
[2018-01-29 08:27] LABS: ADD MAN DIFF? NO
[2018-01-29 08:36] LABS: BASOPHIL # 0.1 10^3/ul (0.0-0.1); BASOPHILS % 0.4 % (0.0-2.0); EOSINOPHILS # 0.2 10^3/ul (0.0-0.5); EOSINOPHILS % 1.6 % (0.0-7.0); HEMATOCRIT 33.3 % (42.0-52.0); HEMOGLOBIN 10.5 g/dl (14.0-18.0); LYMPHOCYTES # 1.9 10^3/ul (0.8-2.9); LYMPHOCYTES % 13.9 % (15.0-51.0); MEAN CORPUSCULAR HEMOGLOBIN 28.2 pg (29.0-33.0); MEAN CORPUSCULAR HGB CONC 31.5 g/dl (32.0-37.0); MEAN CORPUSCULAR VOLUME 89.3 fl (82.0-101.0); MEAN PLATELET VOLUME 10.3 fl (7.4-10.4); MONOCYTE # 1.2 10^3/ul (0.3-0.9); NEUTROPHILS % 74.4 % (39.0-77.0); PLATELET COUNT 596 10^3/UL (140-415); RED BLOOD COUNT 3.73 10^6/ul (4.70-6.10); RED CELL DISTRIBUTION WIDTH 14.3 % (11.5-14.5)
[2018-01-29 08:36] LABS: WHITE BLOOD COUNT 13.5 10^3/ul (4.8-10.8)
[2018-01-29 08:56] LABS: ANION GAP 13 (8-16); BLOOD UREA NITROGEN 22 mg/dl (7-20); CALCIUM 9.2 mg/dl (8.4-10.2); CARBON DIOXIDE 35 mmol/L (21-31); CHLORIDE 93 mmol/L (97-110); CREATININE 0.73 mg/dl (0.61-1.24); GLUCOSE 190 mg/dl (70-220); POTASSIUM 3.8 mmol/L (3.5-5.1); SODIUM 137 mmol/L (135-144)
[2018-01-29 09:04] LABS: MAGNESIUM 1.9 mg/dl (1.7-2.5)
[2018-01-29] MEDS: FAMOTIDINE 20 MG TAB NGT ×2 (09:55→20:43)
[2018-01-29] MEDS: CHOLECALCIFEROL 1,000 UNIT TAB PO (09:55)
[2018-01-29] MEDS: LACTOBACILLUS RHAMNOSUS CAP PO ×2 (09:55→20:43)
[2018-01-29] MEDS: ATORVASTATIN 10 MG TAB PO (20:43)
[2018-01-29] MEDS: INSULIN GLARGINE [LANtus] 3 ML PEN SC (20:55)
[2018-01-30] MEDS: METOCLOPRAMIDE 10 MG INJ IV ×5 (00:19→23:51)
[2018-01-30] MEDS: INSULIN ASPART [NOVOLOG] 3 ML PEN SC ×4 (00:25→09:12)
[2018-01-30] MEDS: LEVOFLOXACIN 750 MG TABLET NGT (05:33)
[2018-01-30] MEDS: CHOLECALCIFEROL 1,000 UNIT TAB PO (09:00)
[2018-01-30] MEDS: LACTOBACILLUS RHAMNOSUS CAP PO ×2 (09:00→20:48)
[2018-01-30] MEDS: FAMOTIDINE 20 MG TAB NGT ×2 (09:00→20:48)
[2018-01-30] MEDS ORDERED: INSULIN ASPART [NOVOLOG] 3 ML PEN SC (12:00)
[2018-01-30] MEDS: Insulin NOVOLOG SS MILD Algorithm (NPO/TPN/ENTERAL FEEDS) SC ×3 (12:14→23:53)
[2018-01-30] MEDS: INSULIN GLARGINE [LANtus] 3 ML PEN SC (20:47)
[2018-01-30] MEDS: ATORVASTATIN 10 MG TAB PO (20:48)
[2018-01-30] MEDS: ACETAMINOPHEN 650MG/20.3ML CUP NGT (21:46)
[2018-01-31 05:35] LABS: ADD MAN DIFF? NO
[2018-01-31 05:47] LABS: WHITE BLOOD COUNT 13.3 10^3/ul (4.8-10.8)
[2018-01-31 05:47] LABS: BASOPHIL # 0.1 10^3/ul (0.0-0.1); BASOPHILS % 0.5 % (0.0-2.0); EOSINOPHILS # 0.2 10^3/ul (0.0-0.5); EOSINOPHILS % 1.5 % (0.0-7.0); HEMATOCRIT 33.3 % (42.0-52.0); HEMOGLOBIN 10.6 g/dl (14.0-18.0); LYMPHOCYTES # 2.2 10^3/ul (0.8-2.9); LYMPHOCYTES % 16.3 % (15.0-51.0); MEAN CORPUSCULAR HEMOGLOBIN 28.4 pg (29.0-33.0); MEAN CORPUSCULAR HGB CONC 31.8 g/dl (32.0-37.0); MEAN CORPUSCULAR VOLUME 89.3 fl (82.0-101.0); MEAN PLATELET VOLUME 10.3 fl (7.4-10.4); MONOCYTE # 1.2 10^3/ul (0.3-0.9); MONOCYTES % 8.9 % (0.0-11.0); NEUTROPHIL # 9.6 10^3/ul (1.6-7.5); NEUTROPHILS % 72.2 % (39.0-77.0); PLATELET COUNT 584 10^3/UL (140-415); RED BLOOD COUNT 3.73 10^6/ul (4.70-6.10); RED CELL DISTRIBUTION WIDTH 14.5 % (11.5-14.5)
[2018-01-31] MEDS: LEVOFLOXACIN 750 MG TABLET NGT (05:51)
[2018-01-31] MEDS: METOCLOPRAMIDE 10 MG INJ IV ×3 (05:52→17:57)
[2018-01-31] MEDS: Insulin NOVOLOG SS MILD Algorithm (NPO/TPN/ENTERAL FEEDS) SC ×3 (06:06→18:28)
[2018-01-31 06:16] LABS: ANION GAP 12 (8-16); BLOOD UREA NITROGEN 21 mg/dl (7-20); CALCIUM 9.1 mg/dl (8.4-10.2); CARBON DIOXIDE 37 mmol/L (21-31); CHLORIDE 92 mmol/L (97-110); CREATININE 0.69 mg/dl (0.61-1.24); GLUCOSE 160 mg/dl (70-220); POTASSIUM 3.8 mmol/L (3.5-5.1); SODIUM 137 mmol/L (135-144)
[2018-01-31 06:37] LABS: PHOSPHORUS 3.8 mg/dl (2.5-4.9)
[2018-01-31] MEDS: FAMOTIDINE 20 MG TAB NGT ×2 (09:29→21:22)
[2018-01-31] MEDS: LACTOBACILLUS RHAMNOSUS CAP PO ×2 (09:30→21:22)
[2018-01-31] MEDS: CHOLECALCIFEROL 1,000 UNIT TAB PO (09:30)
[2018-01-31] MEDS: ACETAMINOPHEN 650MG/20.3ML CUP NGT ×2 (15:16→22:02)
[2018-01-31] MEDS: INSULIN GLARGINE [LANtus] 3 ML PEN SC (20:25)
[2018-01-31] MEDS: ATORVASTATIN 10 MG TAB PO (21:22)
[2018-02-01] MEDS: METOCLOPRAMIDE 10 MG INJ IV ×5 (00:20→23:33)
[2018-02-01] MEDS: BISACODYL 10 MG SUPP PR (00:21)
[2018-02-01] MEDS: Insulin NOVOLOG SS MILD Algorithm (NPO/TPN/ENTERAL FEEDS) SC ×2 (00:23→06:02)
[2018-02-01 05:12] LABS: ADD MAN DIFF? NO
[2018-02-01 05:22] LABS: BASOPHIL # 0.1 10^3/ul (0.0-0.1); BASOPHILS % 0.3 % (0.0-2.0); EOSINOPHILS # 0.1 10^3/ul (0.0-0.5); EOSINOPHILS % 0.6 % (0.0-7.0); HEMATOCRIT 32.9 % (42.0-52.0); HEMOGLOBIN 10.8 g/dl (14.0-18.0); LYMPHOCYTES # 1.9 10^3/ul (0.8-2.9); LYMPHOCYTES % 11.7 % (15.0-51.0); MEAN CORPUSCULAR HEMOGLOBIN 29.1 pg (29.0-33.0); MEAN CORPUSCULAR HGB CONC 32.8 g/dl (32.0-37.0); MEAN CORPUSCULAR VOLUME 88.7 fl (82.0-101.0); MEAN PLATELET VOLUME 10.2 fl (7.4-10.4); MONOCYTE # 1.2 10^3/ul (0.3-0.9); MONOCYTES % 7.6 % (0.0-11.0); NEUTROPHIL # 12.8 10^3/ul (1.6-7.5); NEUTROPHILS % 79.3 % (39.0-77.0); PLATELET COUNT 609 10^3/UL (140-415); RED BLOOD COUNT 3.71 10^6/ul (4.70-6.10); RED CELL DISTRIBUTION WIDTH 14.5 % (11.5-14.5)
[2018-02-01 05:22] LABS: WHITE BLOOD COUNT 16.1 10^3/ul (4.8-10.8)
[2018-02-01 05:38] LABS: ANION GAP 11 (8-16)
[2018-02-01 05:46] LABS: PHOSPHORUS 3.7 mg/dl (2.5-4.9)
[2018-02-01 05:57] LABS: BLOOD UREA NITROGEN 21 mg/dl (7-20); CARBON DIOXIDE 38 mmol/L (21-31); CHLORIDE 92 mmol/L (97-110); CREATININE 0.71 mg/dl (0.61-1.24); GLUCOSE 170 mg/dl (70-220); SODIUM 137 mmol/L (135-144)
[2018-02-01] MEDS: LEVOFLOXACIN 750 MG TABLET NGT (06:00)
[2018-02-01] MEDS: FAMOTIDINE 20 MG TAB NGT ×2 (09:13→20:14)
[2018-02-01] MEDS: LACTOBACILLUS RHAMNOSUS CAP PO ×2 (09:13→20:15)
[2018-02-01] MEDS: CHOLECALCIFEROL 1,000 UNIT TAB PO (09:13)
[2018-02-01] MEDS: LEVALBUTEROL (NEB) 0.63 MG/3 ML AMP HHN (09:51)
[2018-02-01] MEDS: DEXTROSE 5%-0.45% NACL 1,000 ML IV ×3 (11:07→23:30)
[2018-02-01 12:41] LABS: ADD UMIC YES; UR AMORPHOUS CRYSTAL FEW /HPF (NONE SEEN); UR ASCORBIC ACID 40 mg/dL (NEGATIVE); UR BACTERIA FEW /HPF (NONE SEEN); UR BILIRUBIN (Dip) NEGATIVE (NEGATIVE); UR BLOOD (Dip) NEGATIVE (NEGATIVE); UR CLARITY CLOUDY (CLEAR); UR COLOR YELLOW (YELLOW); UR GLUCOSE (Dip) NEGATIVE (NEGATIVE); UR KETONES (Dip) NEGATIVE (NEGATIVE); UR LEUKOCYTE ESTERASE (Dip) NEGATIVE Leu/ul (NEGATIVE); UR NITRITE (Dip) NEGATIVE (NEGATIVE); UR RBC 25 /HPF (0-5); UR SPECIFIC GRAVITY (Dip) 1.016 (1.003-1.030); UR TOTAL PROTEIN (Dip) NEGATIVE (NEGATIVE); UR UROBILINOGEN (Dip) NEGATIVE (NEGATIVE); UR WBC 0 /HPF (0-5)
[2018-02-01 13:17] LABS: INR 1.19; PROTIME 15.3 Sec (11.9-14.9); PT RATIO 1.2
[2018-02-01] MEDS: INSULIN ASPART [NOVOLOG] 3 ML PEN SC ×2 (13:17→20:21)
[2018-02-01 13:18] LABS: PARTIAL THROMBOPLASTIN TIME 36.6 Sec (25.0-35.0)
[2018-02-01] MEDS: CEFAZOLIN 2 GM/50 ML (PMX) 50 ML IVPB (14:30)
[2018-02-01] MEDS: LIDOCAINE 100 MG SYRINGE (16:11)
[2018-02-01] MEDS: PROPOFOL 20 ML (16:12)
[2018-02-01] MEDS: EPHEDrine SULFATE 50 MG/5 ML SYG (16:23)
[2018-02-01] MEDS: ATORVASTATIN 10 MG TAB PO (20:15)
[2018-02-01] MEDS: INSULIN GLARGINE [LANtus] 3 ML PEN SC (20:37)
[2018-02-02] MEDS: LEVALBUTEROL (NEB) 0.63 MG/3 ML AMP HHN (01:17)
[2018-02-02] MEDS: INSULIN ASPART [NOVOLOG] 3 ML PEN SC ×5 (01:41→17:58)
[2018-02-02 05:14] LABS: WHITE BLOOD COUNT 11.6 10^3/ul (4.8-10.8)
[2018-02-02 05:14] LABS: ADD MAN DIFF? NO; BASOPHILS % 0.3 % (0.0-2.0); EOSINOPHILS # 0.1 10^3/ul (0.0-0.5); EOSINOPHILS % 0.6 % (0.0-7.0); HEMATOCRIT 31.6 % (42.0-52.0); HEMOGLOBIN 10.1 g/dl (14.0-18.0); LYMPHOCYTES % 17.5 % (15.0-51.0); MEAN CORPUSCULAR HEMOGLOBIN 28.7 pg (29.0-33.0); MEAN CORPUSCULAR VOLUME 89.8 fl (82.0-101.0); MEAN PLATELET VOLUME 10.1 fl (7.4-10.4); MONOCYTE # 1.1 10^3/ul (0.3-0.9); MONOCYTES % 9.4 % (0.0-11.0); NEUTROPHIL # 8.3 10^3/ul (1.6-7.5); NEUTROPHILS % 71.8 % (39.0-77.0); PLATELET COUNT 555 10^3/UL (140-415); RED BLOOD COUNT 3.52 10^6/ul (4.70-6.10); RED CELL DISTRIBUTION WIDTH 14.4 % (11.5-14.5)
[2018-02-02 05:36] LABS: PHOSPHORUS 3.3 mg/dl (2.5-4.9)
[2018-02-02 05:36] LABS: MAGNESIUM 1.9 mg/dl (1.7-2.5)
[2018-02-02] MEDS: LEVOFLOXACIN 750 MG TABLET NGT (05:37)
[2018-02-02 05:42] LABS: ANION GAP 11 (8-16); BLOOD UREA NITROGEN 12 mg/dl (7-20); CALCIUM 8.8 mg/dl (8.4-10.2); CARBON DIOXIDE 35 mmol/L (21-31); CHLORIDE 97 mmol/L (97-110); CREATININE 0.69 mg/dl (0.61-1.24); GLUCOSE 139 mg/dl (70-220); POTASSIUM 3.6 mmol/L (3.5-5.1); SODIUM 139 mmol/L (135-144)
[2018-02-02] MEDS: METOCLOPRAMIDE 10 MG INJ IV (05:44)
[2018-02-02] MEDS: LACTOBACILLUS RHAMNOSUS CAP PO ×2 (09:00→20:22)
[2018-02-02] MEDS: FAMOTIDINE 20 MG TAB NGT ×2 (09:00→20:22)
[2018-02-02] MEDS: CHOLECALCIFEROL 1,000 UNIT TAB PO (09:00)
[2018-02-02] MEDS: TERAZOSIN 5 MG CAP GTB ×2 (11:30→20:22)
[2018-02-02] MEDS ORDERED: METOCLOPRAMIDE 10 MG INJ IV (13:30)
[2018-02-02] MEDS: ATORVASTATIN 10 MG TAB PO (20:22)
[2018-02-02] MEDS: INSULIN GLARGINE [LANtus] 3 ML PEN SC (20:26)
[2018-02-03 05:13] LABS: ADD MAN DIFF? NO
[2018-02-03 05:23] LABS: BASOPHIL # 0.1 10^3/ul (0.0-0.1); BASOPHILS % 0.6 % (0.0-2.0); EOSINOPHILS # 0.1 10^3/ul (0.0-0.5); EOSINOPHILS % 1.6 % (0.0-7.0); HEMATOCRIT 30.1 % (42.0-52.0); HEMOGLOBIN 9.5 g/dl (14.0-18.0); LYMPHOCYTES # 2.1 10^3/ul (0.8-2.9); LYMPHOCYTES % 23.5 % (15.0-51.0); MEAN CORPUSCULAR HEMOGLOBIN 28.3 pg (29.0-33.0); MEAN CORPUSCULAR HGB CONC 31.6 g/dl (32.0-37.0); MEAN CORPUSCULAR VOLUME 89.6 fl (82.0-101.0); MEAN PLATELET VOLUME 10.4 fl (7.4-10.4); MONOCYTE # 1.1 10^3/ul (0.3-0.9); MONOCYTES % 12.8 % (0.0-11.0); NEUTROPHIL # 5.4 10^3/ul (1.6-7.5); PLATELET COUNT 478 10^3/UL (140-415); RED BLOOD COUNT 3.36 10^6/ul (4.70-6.10); RED CELL DISTRIBUTION WIDTH 14.1 % (11.5-14.5)
[2018-02-03 05:23] LABS: WHITE BLOOD COUNT 8.8 10^3/ul (4.8-10.8)
[2018-02-03 05:32] LABS: MAGNESIUM 1.9 mg/dl (1.7-2.5)
[2018-02-03 05:34] LABS: ANION GAP 11 (8-16); BLOOD UREA NITROGEN 15 mg/dl (7-20); CALCIUM 8.8 mg/dl (8.4-10.2); CARBON DIOXIDE 33 mmol/L (21-31); CHLORIDE 97 mmol/L (97-110); CREATININE 0.66 mg/dl (0.61-1.24); GLUCOSE 114 mg/dl (70-220); POTASSIUM 3.7 mmol/L (3.5-5.1); SODIUM 137 mmol/L (135-144)
[2018-02-03] MEDS: INSULIN ASPART [NOVOLOG] 3 ML PEN SC ×4 (06:00→18:37)
[2018-02-03] MEDS: TERAZOSIN 5 MG CAP GTB ×2 (09:36→20:06)
[2018-02-03] MEDS: FAMOTIDINE 20 MG TAB NGT ×2 (09:36→20:06)
[2018-02-03] MEDS: CHOLECALCIFEROL 1,000 UNIT TAB PO (09:37)
[2018-02-03] MEDS: LACTOBACILLUS RHAMNOSUS CAP PO ×2 (09:37→20:06)
[2018-02-03] MEDS: HYDROCODONE/APAP (10/325) TAB PO (20:06)
[2018-02-03] MEDS: ATORVASTATIN 10 MG TAB PO (20:06)
[2018-02-03] MEDS: INSULIN GLARGINE [LANtus] 3 ML PEN SC (20:08)
[2018-02-04] MEDS: LEVALBUTEROL (NEB) 0.63 MG/3 ML AMP HHN ×2 (01:37→10:12)
[2018-02-04 05:08] LABS: ANION GAP 10 (8-16); BLOOD UREA NITROGEN 18 mg/dl (7-20); CALCIUM 8.8 mg/dl (8.4-10.2); CARBON DIOXIDE 36 mmol/L (21-31); CHLORIDE 97 mmol/L (97-110); CREATININE 0.65 mg/dl (0.61-1.24); GLUCOSE 107 mg/dl (70-220); POTASSIUM 3.7 mmol/L (3.5-5.1); SODIUM 139 mmol/L (135-144)
[2018-02-04] MEDS: INSULIN ASPART [NOVOLOG] 3 ML PEN SC ×4 (05:31→18:24)
[2018-02-04] MEDS: TERAZOSIN 5 MG CAP GTB ×2 (09:35→20:21)
[2018-02-04] MEDS: CHOLECALCIFEROL 1,000 UNIT TAB PO (09:35)
[2018-02-04] MEDS: FAMOTIDINE 20 MG TAB NGT ×2 (09:35→20:21)
[2018-02-04] MEDS: LACTOBACILLUS RHAMNOSUS CAP PO ×2 (09:35→20:22)
[2018-02-04] MEDS ORDERED: traMADol-APAP 37.5-325 1 TAB PO (10:30)
[2018-02-04] MEDS: ATORVASTATIN 10 MG TAB PO (20:21)
[2018-02-04] MEDS: INSULIN GLARGINE [LANtus] 3 ML PEN SC (20:26)
[2018-02-05] MEDS: INSULIN ASPART [NOVOLOG] 3 ML PEN SC ×4 (05:50→18:00)
[2018-02-05] MEDS: BISACODYL 10 MG SUPP PR (06:48)
[2018-02-05] MEDS: CHOLECALCIFEROL 1,000 UNIT TAB PO (09:11)
[2018-02-05] MEDS: FAMOTIDINE 20 MG TAB NGT (09:12)
[2018-02-05] MEDS: TERAZOSIN 5 MG CAP GTB (09:12)
[2018-02-05] MEDS: LACTOBACILLUS RHAMNOSUS CAP PO (09:12)
== END 2018-02-05 20:16 | disposition home health service (06) | DRG 471 ==
LOC: REC 08:21 → TEL 01-14 23:52 → MS1 01-30 16:30
PROVIDERS: Neurological Surgery
PROC: 0RG2071 Fusion of 2 or more Cervical Vertebral Joints with Autologous Tissue Substitute, Posterior Approach, Posterior Column, Open Approach (ICD-10-PCS; principal; 2018-01-13 10:00)
PROC: 4A11X4G Monitoring of Peripheral Nervous Electrical Activity, Intraoperative, External Approach (ICD-10-PCS; 2018-01-13 10:00)
PROC: 0DH63UZ Insertion of Feeding Device into Stomach, Percutaneous Approach (ICD-10-PCS; 2018-01-13 11:06)
DX: M48.02 Spinal stenosis, cervical region (principal); J69.0 Pneumonitis due to inhalation of food and vomit; G93.41 Metabolic encephalopathy; A41.9 Sepsis, unspecified organism; N39.0 Urinary tract infection, site not specified; M47.12 Other spondylosis with myelopathy, cervical region; I10 Essential (primary) hypertension; E11.9 Type 2 diabetes mellitus without complications; B96.20 Unspecified Escherichia coli [E. coli] as the cause of diseases classified elsewhere; E78.5 Hyperlipidemia, unspecified; N40.1 Benign prostatic hyperplasia with lower urinary tract symptoms; I69.991 Dysphagia following unspecified cerebrovascular disease; N39.498 Other specified urinary incontinence
CPT/HCPCS: 70450; 71045; 72040; 74230; 80048; 80053; 80202; 81001; 82962; 83605; 83735; 84100; 84145; 85025; 85610; 85730; 86850; 86900; 86901; 86920; 87040; 87070; 87086; 92526; 92610; 92611; 94640; 94664; 97110; 97162; 97530